=== PATIENT | male | born 1960 | race Caucasian/White ===

== ENCOUNTER → 2017-11-22 | Outpatient (CLI) | payer BC | LOC: COL.RAD 09:02 | DX: M19.012 Primary osteoarthritis, left shoulder (principal) | CPT/HCPCS: J3301; Q9967 ==

== ENCOUNTER → 2018-05-09 | Outpatient (CLI) | payer BC | LOC: COL.RAD 14:09 | DX: M19.012 Primary osteoarthritis, left shoulder (principal) | CPT/HCPCS: J3301; Q9967 ==

== ENCOUNTER 2019-11-27 09:15 | Inpatient (IN) | payer BC ==
[~2019-11-27] VITALS: Ht 172.7 cm; Wt 74.3 kg
[2019-12-28] VITALS (10 sets, daily range): BP systolic 83–120; BP diastolic 44–69; PULSE 40–68; TEMP 97.8–98
[2019-12-28] MEDS ORDERED: NEURONTIN300 MG/CAP PO (07:24)
[2019-12-28] MEDS ORDERED: CRESTOR 10MG10 MG PO (07:25)
[2019-12-28] MEDS ORDERED: ZETIA 10MG TAB10 MG PO (07:25)
[2019-12-28] MEDS ORDERED: SLO-NIACIN500 MG PO (07:26)
[2019-12-28] MEDS ORDERED: AMBIEN 5MG TABLE5 MG PO (07:27)
[2019-12-28] MEDS ORDERED: TYLENOL W/COD1 UDTAB PO (07:28)
--- NOTE | 2019-12-28 13:14 | NUR ---
PT TO ROOM 331 PER BED WITH REPORT FROM [facility] PACU @0697. PT IS A/O X3, LUNGS CLEAR. VSS. RIGHT KNEE DRESSING CDI WITH MALACHI HERNANDEZ PAC INPLACE. IV TO PUMP PER ORDERS. PEDAL PULSES PALPABLE.
--- NOTE | 2019-12-28 14:55 | NUR ---
SW met with the patient to discuss discharge plan. The patient lives in [place] with his , [place] ([phone]). He reports independence with ADLs and has a walker. The patient's PCP is Dr. Deni Monreal and he receives his medications at [facility]. He reports no difficulties obtaining his meds. The patient does not have advanced directives completed. The patient plans to return home with his and receive outpatient PT at [facility] upon discharge. No additional needs at this time.
--- NOTE | 2019-12-28 18:40 | NUR ---
resting in bed, bedside shift report received from JAZMYN Myers
--- NOTE | 2019-12-28 18:52 | NUR ---
REPORT TO SHIRLEY ELDRIDGE.
--- NOTE | 2019-12-28 19:15 | NUR ---
resting in bed, asking about getting up to take a walk this evening, assisted him up and out of bed and ambulated out in [place] short distance and then back to bed, full assessment completed, see interventions for further info, denies pain or needs at this time,
--- NOTE | 2019-12-28 20:55 | NUR ---
awake and watching TV, repositioned right leg for comfort, denies need for pain pills at this time
--- NOTE | 2019-12-28 23:00 | NUR ---
beginning to c/o of increased pain to right knee, medicated with roxicodone 10mg po
--- NOTE | 2019-12-29 00:24 | NUR ---
shift report given to JAZMYN Mckee
[2019-12-29 01:08] VITALS: BP 111/63; PULSE 58; TEMP 98.2
[2019-12-29 05:46] VITALS: BP 101/58; PULSE 57; TEMP 97.9
--- NOTE | 2019-12-29 06:39 | NUR ---
patient up to bathroom with 1:1 assist gaitbelt and walker. See EMAR for medication administered for c/o right knee pain. tolerated for approx 5 minuets. @ [facility] hot water provided and taken in as ordered. Patient has no other questions or concerns at this time.
[2019-12-29 07:18] LABS: HEMOGLOBIN 14.7 g/dl (13.5-18.0)
[2019-12-29 07:54] VITALS: BP 101/62; PULSE 59; TEMP 98.3
[2019-12-29] MEDS ORDERED: ASPI325T6 PO (10:37)
[2019-12-29] MEDS ORDERED: ROXICODONE 55 MG/TAB PO (10:37)
[2019-12-29] MEDS ORDERED: NORCO 325 MG-7.1 TAB PO (10:37)
[2019-12-29 10:57] VITALS: BP 98/63; PULSE 50; TEMP 97.9
--- NOTE | 2019-12-29 14:20 | NUR ---
Denied pain. Physical therapy worked with patient. Ambulated with walker in room and halls. Denied dizziness. Prescriptions and home instructions given. Dismissed to home with family.
== END 2019-12-29 14:20 | disposition home or self-care (01) | DRG 470 ==
LOC: JCC 12-28 06:38
PROVIDERS: ADMIT Orthopaedic Surgery
PROC: 0SRC0J9 Replacement of Right Knee Joint with Synthetic Substitute, Cemented, Open Approach (ICD-10-PCS; principal; 2019-12-28 10:45)
DX: M17.11 Unilateral primary osteoarthritis, right knee (principal); G89.29 Other chronic pain; M54.9 Dorsalgia, unspecified; G43.909 Migraine, unspecified, not intractable, without status migrainosus; G47.33 Obstructive sleep apnea (adult) (pediatric); E78.5 Hyperlipidemia, unspecified
CPT/HCPCS: A4314; A9284; C1776; J0690; J2250; J2704; J3370; J7030; J7120